=== PATIENT | female | born 1965 | race African-American/Black ===

== ENCOUNTER 2025-05-27 12:36 | Emergency (ER) | payer BC, SELFPAY ==
--- OUTSIDE RECORDS SUMMARY | 2025-05-26 16:30 | XMS_ITS | Encounter Summary ---
Author Organization [facility] Healthcare Address [address] [place] [address] Care Team Providers Care Principal Systems Engineer Name Role Phone Marcus Hernandez MD Primary Care Provider [phone] Reason for Visit * Reason Comments Urinary Symptom Started Saturday wit h symptoms. Burning with urination. Encounter Details Date Type Department Care Team (Late st Contact Info) Description 05/26/2025 4:30 PM CDT Office Visit [facility] at [address] [address] Viv Rao PA [address] [place] [address] [address] [place] [address] Dysuria (Primary Dx) Social History Tobacco Use Types Packs/Day Years Used Date Smoking Tobacco: Never Smokeless Tobacco: Never Alcohol Use Standard Drinks/Week Comments Yes 0 (1 standard drink = 0.6 oz pur e alcohol) AUDIT-C Answer Date Recorded Q1: How often do you have a drink containing alc ohol? Monthly or less 10/15/2024 Q2: How many drinks containi ng alcohol do you have on a typical day when you are drinking? 1 or 2 10/15/2024 Q3: How often do you have si x or more drinks on one occasion? Never 10/15/2024 PHQ-2 Answer Date Recorded PHQ-2 Total Score (If total score is 3 or more points, staff should administer the PHQ-9) 0 03/16/2025 Personal Safety Answer Date Recorded Have you ever been in or are you currently in a harmful physical or emotional relationship or is someone making you feel afraid or unsafe? 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 Gender Identity Not on file Sexual Orientation Not on file documented as of this encounter Last Filed Vital Signs Vital Sign Reading Time Taken Comments Blood Pressure 118/79 05/26/2025 4:35 PM CDT Pulse 90 05/26/2025 4:35 PM CDT Temperature 37.1 C (98.7 F) 05/26/2025 4:35 PM CDT Respiratory Rate 20 05/26/2025 4:35 PM CDT Oxygen Saturation 98% 05/26/2025 4:35 PM CDT Inhaled Oxygen Concentration - - Weight 92.1 kg (203 lb) 05/26/2025 4:35 PM CDT Height - - Body Mass Index 29.98 03/16/2025 1:24 PM CDT documented in this encounter Progress Notes * Viv Rao PA - 05/26/2025 4:30 PM CDT Images from the original note were not included. Subjective/Objective Patient ID: Elaine Ferraro is a 59 y.o. female. This patient has verbally consented to recording this visit in order to utilize AI technology in generating this note. Chief Complaint Urinary Symptom (Started Saturday with symptoms. Burning with urination. ) History of Present Illness Elaine Ferraro is a 59 year old female who presents with low back pain. 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 Physical Exam Physical Exam Constitutional: Appearance: Normal appearance. HENT: Head: Normocephalic and atraumatic. Right Ear: External ear normal. Left Ear: External ear normal. Nose: Nose normal. Mouth/Throat: Pharynx: Oropharynx is clear. Eyes: Pupils: Pupils are equal, round, and reactive to light. Cardiovascular: Rate and Rhythm: Normal rate. Pulmonary: Effort: Pulmonary effort is normal. Musculoskeletal: General: Normal range of motion. Cervical back: Normal range of motion. Skin: General: Skin is warm and dry. Neurological: General: No focal deficit present. Mental Status: She is alert and oriented to person, place, and time. Psychiatric: Mood and Affect: Mood normal. Behavior: Behavior normal. Vitals: 05/26/25 1635 BP: 118/79 Pulse: 90 Resp: 20 Temp: 37.1 ??C (98.7 ??F) TempSrc: Oral SpO2: 98% Weight: 92.1 kg (203 lb) No results found. Past Medical History: Diagnosis Date Arthritis Diverticulosis Dizziness Ear problems Fibroids GERD (gastroesophageal reflux disease) Headache Hypertension Tinnitus Current Outpatient Medications: aspirin 81 mg enteric coated tablet, TAKE 1 TABLET BY MOUTH EVERY DAY, Disp: 90 tablet, Rfl: 1 atorvastatin (LIPITOR) 10 mg tablet, TAKE 1 TABLET BY MOUTH EVERY DAY, Disp: 90 tablet, Rfl: 1 budesonide (PULMICORT) 0.5 mg/2 mL nebulizer solution, Take 2 mL (0.5 mg total) by nebulization daily Rinse mouth with water after use. Do not swallow., Disp: 60 mL, Rfl: 5 HYDROcodone-acetaminophen (NORCO) 10-325 mg per tablet, Take 1 tablet by mouth every 8 (eight) hours as needed for pain, Disp: 90 tablet, Rfl: 0 meclizine (ANTIVERT) 25 mg tablet, Take 1 tablet (25 mg total) by mouth 3 (three) times a day as needed for dizziness, Disp: 40 tablet, Rfl: 1 metoprolol tartrate (LOPRESSOR) 25 mg immediate release tablet, Take 1 tablet (25 mg total) by mouth 2 (two) times a day, Disp: 180 tablet, Rfl: 3 Allergies Allergen Reactions Tetracycline Unknown Lisinopril Unknown and Cough cough Social History Tobacco Use Smoking status: Never Smokeless tobacco: Never Substance and Sexual Activity Drug use: Never Sexual activity: Defer Partners: Male control/protection: Post-menopausal Alcohol Use: Not At Risk (10/15/2024) AUDIT-C Frequency of Alcohol Consumption: Monthly or less Average Number of Drinks: 1 or 2 Frequency of Binge Drinking: Never Past Surgical History: Procedure Laterality Date BREAST BIOPSY Left 01/07/2015 BREAST BIOPSY Left 01/07/2015 SECTION x3 COLONOSCOPY Procedures Assessment/Plan Results Recent Results (from the past 4 hours) POCT urinalysis dipstick Collection Time: 05/26/25 4:42 PM Result Value Ref Range Color, Urine, POC Dark Yellow Clarity, ur, POC Clear Clear Glucose, ur, POC Negative Negative Bilirubin, ur, POC Small (A) Negative Ketones, ur, POC Negative Negative Specific [place], POC 1.030 1.003 - 1.030 Blood, ur, POC Trace (A) Negative pH, ur, POC 6.0 5.0 - 8.0 Protein, ur, POC 100. (A) Negative Urobilinogen, urine, POC 0.2 0.2 - 1.0 mg/dL Nitrite, ur, POC Negative Negative Leukocytes, ur, POC Negative Negative Lot Number [id number] Assessment & Plan Low back pain Lower back pain likely musculoskeletal from repetitive bending working as a home health nurse. Significantly improved at this time, seems to be resolving. UA shows trace blood, possiblity of recentlypassed kidney stone. - send urine culture - Continue ibuprofen. - Apply heat. - Perform light stretching. -follow up with pcp if pain persists -ER for new or worsening symptoms Diagnoses and all orders for this visit: Dysuria (Primary) - Urine culture Urine, clean voided; Future - POCT urinalysis dipstick Disposition Treatment plan including expectations, follow up, and return precautions discussed with patient/parent, verbalizes understanding. Medication dosage, use, and potential adverse reactions discussed with patient/parent. Advised to follow up with PCP if symptoms do not resolve as expected or sooner if condition worsens. Signs/symptoms warranting ER evaluation reviewed. Patient and/or guardian was given an opportunity to ask questions, questions answered. MARCOS Worrell documented in this encounter Plan of Treatment Pending Results Name Type Priority Associated Diagnoses Date /Time Urine culture Urine, clean voided Microbiology Routine Dysuria 05/26/2025 4:45 PM CDT Scheduled Orders Name Type Priority Associated Diagnoses Orde r Schedule Urine culture Urine, clean voided Microbiology Routine Dysuria Expected: 05/26/2025, Expires: 05/26/2026 documented as of this encounter Procedures Procedure Name Priority Date/Time Associated Diagnosis Comments POCT URINALYSIS DIPSTICK Routine 05/26/2025 4:42 PM CDT Dysuria documented in this encounter Results * (ABNORMAL) POCT urinalysis dipstick (05/26/2025 4:42 PM CDT) Color, Urine, POC Dark Yellow Clarity, ur, POC Clear Clear Glucose, ur, POC Negative Negative Bilirubin, ur, POC Small(A) Negative Ketones, ur, POC Negative Negative Specific [place], POC 1.030 1.003 - 1.030 Blood, ur, POC Trace(A) Negative pH, ur, POC 6.0 5.0 - 8.0 Protein, ur, POC 100.(A) Negative Urobilinogen, urine, POC 0.2 0.2 - 1.0 mg/dL Nitrite, ur, POC Negative Negative Leukocytes, ur, POC Negative Negative Lot Number [id number] Urine 05/26/2025 4:42 PM CDT Viv RODRÍGUEZ POINT OF CARE TEST ORDER NORMAN Final Result documented in this encounter Visit Diagnoses Diagnosis Dysuria- Primary documented in this encounter Care Teams Principal Systems Engineer Relationship Specialty Start Date End Date Marcus Hernandez MD PCP - General 10/23/18 documented as of this encounter
--- OUTSIDE RECORDS SUMMARY | 2025-05-26 16:30 | XMS_ITS | Encounter Summary ---
Author Organization [facility] Healthcare Address [address] [place] [address] Care Team Providers Care Prepress Technician Name Role Phone Marcus Hernandez MD Primary Care Provider Reason for Visit * Reason Comments Urinary Symptom Started Saturday wit h symptoms. Burning with urination. 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 (A) Negative Urobilinogen, urine, POC 0.2 0.2 - 1.0 mg/dL Nitrite, ur, POC Negative Negative Leukocytes, ur, POC Negative Negative Lot Number [id number] Assessment & Plan Low back pain Lower [...] Negative Ketones, ur, POC Negative Negative Specific [place], POC 1.030 1.003 - 1.030 Blood, ur, POC Trace(A) Negative pH, ur, POC 6.0 5.0 - 8.0 Protein, ur, POC 100.(A) Negative Urobilinogen, urine, POC 0.2 0.2 - 1.0 mg/dL Nitrite, ur, POC Negative Negative Leukocytes, ur, POC Negative Negative Lot Number [id number] Urine 05/26/2025 4:42 PM CDT Viv RODRÍGUEZ POINT OF CARE TEST ORDER NORMAN Final Result documented in this encounter Visit Diagnoses Diagnosis Dysuria- Primary documented in this encounter Care Teams Prepress Technician Relationship Specialty Start Date End Date Marcus Hernandez MD PCP - General 10/23/18 documented as of this encounter
--- OUTSIDE RECORDS SUMMARY | 2025-05-26 16:45 | XMS_ITS | Encounter Summary ---
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 Do not swallow. 60 mL 5 03/19/2024 HYDROcodone-acet aminophen (NORCO) 10-325 mg per tabletIndication s:Chronic midline thoracic back pain Take 1 tablet by mouth every 8 (eight) hours as needed for pain 90 tablet 05/06/2025 meclizine (ANTIVERT) 25 mg tablet Take 1 tablet (25 mg total) by mouth 3 (three) times a day as needed for dizziness 40 tablet 1 05/06/2025 metoprolol tartrate (LOPRESSOR) 25 mg immediate release tablet Take 1 tablet (25 mg total) by mouth 2 (two) times a day 180 tablet 3 03/16/2025 documented as of this encounter Discharge Disposition Disposition Code Departure Means Destination Discharge to home or self care documented in this encounter Plan of Treatment Pending Results Name Type Priority Associated Diagnoses Date /Time Urine culture Urine, clean voided Microbiology Routine Dysuria 05/26/2025 4:45 PM CDT Scheduled Orders Name Type Priority Associated Diagnoses Orde r Schedule Urine culture Urine, clean voided Microbiology Routine Dysuria Once for 1 Occurrences starting 05/26/2025 until 05/26/2025 documented as of this encounter Visit Diagnoses Diagnosis Dysuria documented in this encounter Care Teams Computer Artist Relationship Specialty Start Date End Date Marcus Hernandez MD PCP - General 10/23/18 documented as of this encounter
--- OUTSIDE RECORDS SUMMARY | 2025-05-26 16:45 | XMS_ITS | Encounter Summary ---
Author Organization 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
--- NOTE | ~2025-05-27 | CT_ITS ---
CTA NECK, CTA HEAD Clinical History: transient altered mental status Comparison: Noncontrast CT head same day TECHNIQUE: Helical images thoracic inlet to vertex IV contrast information not listed in PACS Coronal, sagittal reformats. Multi planar MIPS CT images acquired with automatic exposure control for dose reduction DLP: 969 mGy-cm Findings: NASCET Criteria utilized CTA NECK Aortic arch: No aneurysm or dissection. Great vessel origins: No stenosis. CCAs: No stenosis. Cervical ICAs: No stenosis. Vertebral Arteries: Patent. Lung Apices: Clear. Thyroid: Unremarkable. Nodes: No enlarged nodes. Bones: No acute bony abnormality. CTA HEAD: Aneurysms: None. Intracranial ICAs: Patent, unremarkable. ACAs and their distal branches: Patent, unremarkable. A-Comm: Identified. Patent, unremarkable. MCAs and their distal branches: Patent, unremarkable. Basilar artery: Patent, unremarkable. office coordinator and their distal branches: Patent, unremarkable. P-Comms: Neither present. IMPRESSION: CTA NECK: 1. No acute findings. CTA HEAD: 1. No acute findings. Reviewed, dictated and finalized at location R.
--- NOTE | ~2025-05-27 | CT_ITS ---
CT HEAD NON-CONTRAST Clinical History: altered mental status Comparison: None Technique: Unenhanced axial images skull base to vertex Coronal, sagittal reformats CT images acquired with automatic exposure control for dose reduction DLP: 605 mGy-cm Findings: Mild white matter changes, typically chronic microvascular ischemic disease. Left basal ganglia lacune. Sulci, ventricles: Unremarkable. No intracerebral hemorrhage. No evidence acute territorial infarct. No mass effect, midline shift. Bony calvarium intact. Visualized paranasal sinuses: Clear. Mastoid air cells: Clear. IMPRESSION: 1. No acute intracranial findings. Reviewed, dictated and finalized at location R.
[2025-05-27 12:39] VITALS: BP 156/105; PULSE 102; RESP 16; TEMP 36.5; O2SAT 100
--- NOTE | 2025-05-27 12:48 | ECG_ITS ---
Test Date: 2025-05-27 13:07:07 Measurements Intervals Lynn Rate: 97 P: 39 AK: 188 QRS: -42 QRSD: 102 T: 30 QT: 343 QTc: 438 Interpretive Statements SINUS RHYTHM LEFT AXIS DEVIATION POOR R WAVE PROGRESSION BASELINE ARTIFACT- I, II, III, AVR, AVL, AVF BORDERLINE ECG No previous ECG available for comparison Electronically Signed On 05-27-2025 14:36:37 CDT by Campos Vega D.O.
[2025-05-27 12:58] LABS: Hematocrit 42.8 % (37.0-47.0); Hemoglobin 13.9 g/dL (12.0-15.0); Immature Granulocyte Percent A 0.2 % (0-0.5); Lymphocytes Absolute Auto 2.66 K/mm3 (0.9-3.2); Mean Corpuscular HGB Conc 32.5 g/dl (32-36); Mean Corpuscular Hemoglobin 26.6 pg (26-34); Mean Corpuscular Volume 81.8 fl (80-100); Nucleated Red Blood Cells Absolute Auto 0.000 K/mm3 (0.0-0.012); Nucleated Red Blood Cells Perc 0.0 % (0.0-0.2); Platelet Count Result 257 k/mm3 (150-375); Red Blood Count 5.23 M/mm3 (4.2-5.4); White Blood Count 5.0 K/mm3 (4.5-10.0)
[2025-05-27 13:00] VITALS: BP 176/110; PULSE 95; RESP 15; TEMP 36.7; O2SAT 100
--- NOTE | 2025-05-27 13:07 | ED_ITS ---
HPI - Dizziness General Chief Complaint: Dizziness Stated Complaint: DIZZINESS, LIGHTHEADED Time Seen by Provider: 05/27/25 12:47 History of Present Illness HPI Narrative: Pt presents with onset of lightheadedness, dizziness, a mild LOCKETT and trouble remembering the year. Onset around 1000. Pt says still has a mild general LOCKETT and feels a little fuzzy but can remember everything and has no weakness. Pt reported at triage she had some b/l LE weakness but that has also resolved. Pt says the symptoms lasted about 10 minutes. Pt took two asa before coming to ER. Pt has no history ofsimilar episodes. Related Data Allergies Allergy/AdvReac Type Severity Reaction Status Date / Time No Known Allergies Allergy Verified 05/27/25 12:37 Review of Systems 2 Review of Systems: All systems reviewed & are unremarkable except as noted in HPI and below Exam 2 Const: General: healthy appearing and no acute distress Nutritional Appearance: well nourished Orientation/consciousness: patient oriented x3 Limitations: no limitations HENMT: Head: normal to inspection Face and sinus: normal facial exam M outh: Yes Normal oral and palatal mucosa present Eyes: EOM: EOMs intact bilaterally Neck: Neck: normal visual inspection Chest: Chest palpation & inspection: normal inspection of the chest Resp: Effort & Inspection: normal respiratory effort Auscultation: clear to auscultation bilaterally Cardio: Rate: regular rate Rhythm: regular rhythm GI: Auscultation: normal bowel sounds Skin: General skin exam: normal color Rashes: no rashes Wounds: no wounds Neuro: General: patient oriented x3, moves all extremities, no meningeal signs and CN's II-XI intact bilaterally Cranial nerves: Yes Nystagmus not present Speech: normal speech Extrem: General: normal to inspection and no clubbing, cyanosis or edema Psych: Mental Status: mental status grossly normal Affect: normal affect Attitude: cooperative Course Vital Signs Vital signs: Vital Signs Temperature 97.7 F 05/27/25 12:39 Pulse Rate 102 H 05/27/25 12:39 Respiratory Rate 16 05/27/25 12:39 Blood Pressure 156/105 H 05/27/25 12:39 Pulse Oximetry 100 05/27/25 12:39 Oxygen Delivery Room Air 05/27/25 12:39 Temperature 98.0 F 05/27/25 13:10 Pulse Rate 96 05/27/25 13:10 Respiratory Rate 14 10/16/25 13:10 Blood Pressure 176/110 H 05/27/25 13:10 Pulse Oximetry 99 05/27/25 13:10 Oxygen Delivery Room Air 05/27/25 13:00 MDM - Dizziness MDM Narrative Medical decision making narrative: pt had transient neurologioc symptoms of dizziness and weakness and difficulty remembering date that all resolved after about 10 minutes. Pt has mild LOCKETT now. will do cva work up and reassess. ct and cta neg, labs unremarkable. discussed with patient about possible admission for tia and pt would prefer to go home and see PCP. given neg work up and brief duration of symptoms this seems reasonable Differential Diagnosis Differential diagnosis: Likely benign paroxysmal positional vertigo, orthostatic hypotension, vertebral basilar insufficiency, cerebrovascular accident, acute vestibular neuronitis and transient cerebral ischemia Lab Data Attestation: I reviewed the patient's lab results. 05/27/25 12:51 05/27/25 12:51 Labs: Lab Results 05/27/25 05/27/25 Range/Units 12:46 12:51 WBC 5.0 (4.5-10.0) K/mm3 RBC 5.23 (4.2-5.4) M/mm3 Hgb 13.9 (12.0-15.0) g/dL Hct 42.8 (37.0-47.0) % MCV 81.8 (80-100) fl MCH 26.6 (26-34) pg MCHC 32.5 (32-36) g/dl RDW 12.6 (11.5-14.5) % Plt Count 257 (150-375) k/mm3 MPV 9.2 (7.4-10.4) fl Immature Gran % (Auto) 0.2 (0-0.5) % Neut % (Auto) 37.7 L (45.5-73.1) % Lymph % (Auto) 52.8 H (18.3-44.2) % [place] % (Auto) 7.1 (2.6-8.5) % Eos % (Auto) 2.0 (0-4.4) % Baso % (Auto) 0.2 (0.2-1.2) % Lymph # (Auto) 2.66 (0.9-3.2) K/mm3 [place] # (Auto) 0.4 (0.1-0.6) K/mm3 Eos # (Auto) 0.1 (0-0.3) K/mm3 Baso # (Auto) 0.0 (0.0-0.1) K/mm3 Abs Immat Gran (auto) 0.01 (0.00-0.031) K/mm3 Absolute Neuts (auto) 1.9 (1.3-6.7) K/mm3 Absolute Nucleated RBC 0.000 (0.0-0.012) K/mm3 Nucleated RBC % 0.0 (0.0-0.2) % PT 12.5 (11.1-14.7) Seconds INR 0.9 APTT 27.1 (22.3-36.8) Seconds Sodium 138 (137-145) mmol/L Potassium 3.9 (3.4-5.0) mmol/L Chloride 101 (98-107) mmol/L Carbon Dioxide 29 (22-30) mmol/L Anion Gap 8 (4-12) mmol/L BUN 12 (7-17) mg/dL Creatinine 0.56 L (0.7-1.0) mg/dL Estim Creat Clear Calc 104 ml/min Estimated GFR > 60 (59 - ) Glucose 115 H (65-110) mg/dL POC Capillary Glucose 127 H (65-105) mg/dl Calcium 9.1 (8.4-10.2) mg/dL Total Bilirubin 0.7 (0.2-1.3) mg/dL AST 30 (14-36) U/L ALT 31 (6-35) U/L Alkaline Phosphatase 122 (38-126) U/L Troponin I < 0.012 (0.000-0.034) ng/mL Total Protein 8.0 (6.3-8.2) g/dL Albumin 4.6 (3.5-5.1) g/dL ECG Data EKG #1: Attestation: I personally reviewed and interpreted this ECG as follows: Interpretation: nsr rate 97, lad, no acute st or t wave changes Discharge Plan Discharge Clinical Impression: Dizziness, Transient confusion Patient Disposition: Home Condition: Improved Instructions: Antibiotic Form, Lightheadedness (ED), Altered Mental Status (ED), Dizziness (ED) Patient Language: Telugu Follow-up/Referrals: Mary,Marcus Davis MD [Primary Care Provider, Unknown]
[2025-05-27 13:10] VITALS: BP 176/110; PULSE 96; PULSE 97; RESP 14; TEMP 36.7; O2SAT 99
[2025-05-27 13:10] LABS: Alanine Aminotransferase 31 U/L (6-35); Albumin Level 4.6 g/dL (3.5-5.1); Alkaline Phosphatase 122 U/L (38-126); Anion Gap 8 mmol/L (4-12); Aspartate Amino Transferase 30 U/L (14-36); Bilirubin,Total 0.7 mg/dL (0.2-1.3); Blood Urea Nitrogen 12 mg/dL (7-17); Calcium 9.1 mg/dL (8.4-10.2); Carbon Dioxide 29 mmol/L (22-30); Chloride 101 mmol/L (98-107); Estimated CRCL calculation 104 ml/min; Estimated Glomerular Filt Rate > 60; Glucose 115 mg/dL (65-110); Potassium 3.9 mmol/L (3.4-5.0); Sodium 138 mmol/L (137-145); Total Protein 8.0 g/dL (6.3-8.2)
[2025-05-27 13:20] LABS: INR 0.9; Prothrombin Time 12.5 Seconds (11.1-14.7)
[2025-05-27 13:21] LABS: Partial Thromboplastin Time 27.1 Seconds (22.3-36.8); Troponin I < 0.012 ng/mL (0.000-0.034)
[2025-05-27 13:57] VITALS: BP 154/106; PULSE 96; RESP 15; O2SAT 98
--- OUTSIDE RECORDS SUMMARY | 2025-05-27 14:09 | XMS_ITS | Encounter Summary ---
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 Historical Provider [facility] YAS BROWN Final Result * CARDIOLOGY REPORT (07/09/2017 12:00 AM CIGARETTE PACKER) Anatomical Region Laterality Modality Other Narrative 07/09/2017 12:00 AM CIGARETTE PACKER Ordered by an unspecified provider. us Historical Provider [facility] YAS BROWN Final Result documented in this encounter Visit Diagnoses Not on filedocumented in this encounter Additional Health Concerns Infection Onset Date Last Indicated Resolved Time COVID: Suspected 11/23/2019 11/23/2019 12/07/2019 3:05 AM CDT Exposure, COVID-19 Comment:Added automatically based on COVID19 lab answers indicating exposure risk 02/22/2020 02/22/2020 02/24/2020 10:40 AM CDT COVID19 02/23/2020 02/23/2020 03/08/2020 3:06 AM CDT COVID19 03/07/2020 03/07/2020 03/21/2020 3:06 AM CDT COVID: Recovered Comment:Added based on recent COVID infection. 03/21/2020 04/04/2020 07/19/2020 3:[address] COVID: Suspected 08/18/2021 08/19/2021 08/19/2021 7:46 PM CIGARETTE PACKER COVID19 08/19/2021 08/19/2021 08/29/2021 3:06 AM CIGARETTE PACKER COVID: Recovered Comment:Added based on recent COVID infection. 08/29/2021 08/29/2021 12/27/2021 3:05 AM C DT COVID: Suspected 06/07/2022 06/07/2022 06/07/2022 6:12 PM CDT COVID: Suspected 07/24/2022 07/24/2022 07/24/2022 4:54 PM CIGARETTE PACKER documented as of this encounter Care Teams Bingo Cashier Relationship Specialty Start Date End Date Marcus Hernandez MD PCP - General 10/23/18 documented as of this encounter
--- OUTSIDE RECORDS SUMMARY | 2025-05-27 14:09 | XMS_ITS | Clinical Summary ---
Author Organization [facility] Address [address] [place] [address] Phone Care Team Providers Care Traffic Or System Dispatcher Name Role Phone Marcus Hernandez MD Primary Care Provider [phone] Social History Tobacco Use Types Packs/Day Years Used Date Smoking Tobacco: Never Assessed Comments Unknown Sex and Gender Information Value Date Recorded Sex Assigned at Not on file Legal Sex Female 9:37 AM HAT LACER Gender Identity Not on file Sexual Orientation Not on file Plan of Treatment Health Maintenance Due Date Last Done Comments Hepatitis C Virus (HCV) Screening 1963 Mammogram 1963 Pap Smear 1984 Cervical Cancer Screening (CCS) 1993 HPV/Cotest 1993 Cologuard 2008 Colonoscopy 2008 Colorectal Cancer Screening 2008 Immunochemical Fecal Occult Blood 2008 Pneumococcal Immunization (50+ years) (1 of 1 - PCV) 2013 Zoster Immunization (1 of 2) 2013 Influenza Immunization (#1) 2025 11/0 08/2022, 05/07/2022, 06/13/2021, Additional history exists SARS-COV-2 Immunization (2024- season) 2025 03/01/2022, 06/22/2021, 11/26/2020, Additional history exists Respiratory Syncytial Virus (RSV) Immunization (Adult) (1 - 1-dose 75+ series) 2038 DTaP/Tdap/Td Immunization Discontinued 11/25/2016, TdaP Immunization Completed 11/25/2016 Hepatitis B Immunization Aged Out No longer eligible based on patient's age to complete this topic Human Papillomavirus (HPV) Immunization Aged Out No longer eligible based on patient's age to complete this topic Meningococcal Immunization (ACWY) Aged Out No longer eligible based on patient's age to complete this topic Rotavirus Immunization Aged Out No lo nger eligible based on patient's age to complete this topic Insurance [facility] Care Teams Traffic Or System Dispatcher Relationship Specialty Start Date End Date Marcus Hernandez MD [address] [place] [id number] PCP - General Family Medicine 09/20/23
--- OUTSIDE RECORDS SUMMARY | 2025-05-27 14:09 | XMS_ITS | Clinical Summary ---
Author Organization [facility] Address [address] [place] [address] Care Team Providers Care 911 Emergency Dispatcher Name Role Phone Marcus Hernandez MD Primary Care Provider [phone] Allergies Active Allergy Reactions Criticality Noted Date Comments Lisinopril Unknown,Cough Low 11/25/2016 cough Tetracycline Unknown 01/28/2021 Medications aspirin 81 mg enteric coated tablet TAKE 1 TABLET BY MOUTH EVERY DAY 90 tablet 1 3 Active budesonide (PULMICORT) 0.5 mg/2 mL nebulizer solutionIndica tions:Chronic congestion of paranasal sinus Take 2 mL (0.5 mg total) by nebulization daily Rinse mouth with water after use. Do not swallow. 60 mL 5 4 Active atorvastatin (LIPITOR) 10 mg tablet TAKE 1 TABLET BY MOUTH EVERY DAY 90 tablet 1 5 Active metoprolol tartrate (LOPRESSOR) 25 mg immediate release tablet Take 1 tablet (25 mg total) by mouth 2 (two) times a day 180 tablet 3 5 Active HYDROcodone-ac etaminophen (NORCO) 10-325 mg per tabletIndicati ons:Chronic midline thoracic back pain Take 1 tablet by mouth every 8 (eight) hours as needed for pain 90 tablet 5 Active meclizine (ANTIVERT) 25 mg tablet Take 1 tablet (25 mg total) by mouth 3 (three) times a day as needed for dizziness 40 tablet 1 5 Active meclizine (ANTIVERT) 25 mg tablet Take 1 tablet (25 mg total) by mouth 3 (three) times a day as needed for dizziness 40 tablet 1 5 025 Discontin ued(Reord er) HYDROcodone-ac etaminophen (NORCO) 10-325 mg per tabletIndicati ons:Chronic midline thoracic back pain Take 1 tablet by mouth every 8 (eight) hours as needed for pain 90 tablet 5 025 Discontin ued(Reord er) Active Problems Problem Noted Date Diagnosed Date Thickened 10/15/2024 Sensorineural hearing loss (SNHL) of both ears 0 11/08/2023 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 In the differential diagnosis only concern is a partial complex seizure. I looked at her MRI brain and she does have T2 FLAIR images consistent with previous tiny strokes, not unusual for this age and medical history consistent with hypertension. EEG for Saturday. Recommendations: Dual antiplatelet therapy recommended for 90 days followed by monotherapy, patient was already taking aspirin 81 mg a day at home when this episode occurred. I also asked the patient to hydrate and not perform activity that requires sudden physical exertion. Need lipid panel, LDL goal less than 70 Stroke diet and lifestyle: Consider any meat is better than red meat; fish is better than any meat. Extremely low LDL containing diet for the next 3 months (basically cold-water fish such as salmon/Pima or similar or chicken) High antioxidant containing foods such as blueberries, other berries grown in cold climate and or pistachios. Increase your intake of fruits and vegetables. Walk at least 6440-3589 feet per day. Swimming or non-impact bearing activity is preferred. Ref: Dietary supplementation with blueberries, spinach, or spirulina reduces ischemic brain damage . Exp Neurol . 2005 December;193(1):75-84. doi: 10.1016/j.expneurol.2004.12.014 Associations of Meat and Fish Consumption With Conventional and [employer] Cardiovascular Magnetic Resonance Phenotypes in the [employer]. Front Cardiovasc Med . 2020 5;8:503683. doi: 10.3389/[facility].2021.420288. eCollection 2020. 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 Macromastia 05/05/2020 Fibroids, intramural 10/05/2019 Chronic midline thoracic back pain 09/04/2018 HTN (hypertension) 03/23/2016 Hyperlipidemia 03/23/2016 Assessment & Plan (07/24/2022 5:25 PM INSPECTOR TIMERS): Labs ordered Osteoarthritis 03/23/2016 GERD (gastroesophageal reflux disease) 6 Resolved Problems Problem Noted Date Diagnosed Date Resolved Date Fibroid 07/21/2024 10/08/2024 Dysfunction of both eustachian tubes 11/08/2023 03/16/2025 Chronic pansinusitis 11/08/2023 025 Tinnitus of both ears 11/08/20232024 Overview (11/08/2023): Referral to ENT for further evaluation Acute bronchitis due to COVID-19 virus 03/02/2020 05/05/2020 Acute pain of right shoulder 10/06/2019 05/05/2020 New daily persistent headache 03/10/2019 06/13/2021 Encounters Date Type Department Care Team Description 05/26/2025 4:45 PM CDT - 05/26/2025 11:59 PM CDT Hospital Encounter [address] [address] Dysuria Discharge Disposition: Discharge to home or self care 05/26/2025 4:30 PM CDT Office Visit [facility] at [address] [phone] Viv Rao PA Dysuria (Primary Dx) 04/21/2025 Telephone [facility] Family Medicine at [address] [place] [phone] Marcus Hernandez MD insurance problems 03/16/2025 1:00 PM CDT Telemedicine [facility] Family Medicine at [address] [place] [phone] Marcus Hernandez MD Primary hypertension (Primary Dx); Mixed hyperlipidemia; Gastroesophageal reflux disease without esophagitis; Encounter for screening mammogram for malignant neoplasm of breast 03/11/2025 Telephone [facility] Family Medicine at [address] [place] [address] Theresa Jenkins NP 1st no show letter sent 03/11/25 from Last 3 Months Immunizations Immunization Administration Dates Next Due DTaP 11/25/2016,11/25/2016 Influenza, Quadrivalent, Megan l Culture-based MDCK, Preservative Free, Antibiotic Free, Intramuscular 05/07/2022 Influenza, Quadrivalent, Spl it, Preservative Free, Intramuscular 06/13/2021 Influenza, Unspecified 05/12/2024(Deferr ed: Patient Refused),06/12/2023,08/17/2020, 020(Deferred: Patient decision) Pfizer SARS-CoV-2 Monovalent Vaccination (12+ Yrs) PURPLE 06/22/2021,11/26/2020,11/07/2020 Tdap 11/25/2016 Surgical History Surgery Date Site/Laterality Comments SECTION x3 BREAST BIOPSY 01/07/2015 Left BREAST BIOPSY 01/07/2015 Left COLONOSCOPY Medical History Medical History Date Comments Hypertension Fibroids Arthritis Dizziness Ear problems Tinnitus Headache GERD (gastroesophageal reflux disease) Diverticulosis Family History Medical History Relation Name Comments Skin cancer Brother 1 No Known Problems Brother 2 No Known Problems Brother 3 Breast cancer Mother No Known Problems Sister 1 No Known Problems Sister 2 Ovarian cancer Neg Hx Uterine cancer Neg Hx Relation Name Status Comments Brother 1 Brother 2 Alive Brother 3 Alive Father Mother at age 68 Sister 1 Alive Sister 2 Alive Social History Tobacco Use Types Packs/Day Years Used Date Smoking Tobacco: Never Smokeless Tobacco: Never Tobacco Cessation:Counseling Given: Not Answered Alcohol Use Standard Drinks/Week Comments Yes 0 [...] on file Legal Sex Female 8:23 PM INSPECTOR TIMERS Gender Identity Not on file Sexual Orientation Not on file Obstetrics History Para Term AB IAB SAB Ectopic Multiple Livin g Live Births 5 3 3 2 2 3 Date Outcome GA Total Labor Labor/2nd/3rd Weight Sex Type Anes PTL Chelsy A1 A5 Name Clin Term Term Term SAB SAB Last Filed Vital Signs Vital Sign Reading Time Taken Comments Blood Pressure 118/79 05/26/2025 4:35 PM CDT Pulse 90 05/26/2025 4:35 PM CDT Temperature 37.1 C (98.7 F) 05/26/2025 4:35 PM CDT Respiratory Rate 20 05/26/2025 4:35 PM CDT Oxygen Saturation 98% 05/26/2025 4:35 PM CDT Inhaled Oxygen Concentration - - Weight 92.1 kg (203 lb) 05/26/2025 4:35 PM CDT Height 175.3 cm (5' 9) 03/16/2025 1:24 PM CDT Body Mass Index 29.98 03/16/2025 1:24 PM CDT Plan of Treatment Health Maintenance Due Date Last Done Comments Zoster Vaccine (1 of 2) 2013 Cervical Cancer Screening 09/07/2015 09/07/2014 Breast Cancer Screening-Mammogram 10/07/2024 10/07/2023, 09/14/2022, 09/11/2021, Additional history exists Regular Well Visit/Exam 18-64 03/19/2025 03/19/2024, 05/29/2023, 01/10/2023, Additional history exists Covid-19 Vaccine ( season) 2025 03/01/2022, 06/22/2021, 11/26/2020, Additional history exists Influenza Vaccine (#1) 2025 3, 05/07/2022, 06/13/2021, Additional history exists Depression Screening 03/16/2026 03/16/2025, 10/08/2024, 03/19/2024, Additional history exists DTaP/Tdap/Td Vaccine (4 - Td or Tdap) 11/25/2026 11/25/2016, 11/25/2016, 11/25/2016 Colon Cancer Screening-Colonoscopy 10/05/2029 10/05/2024, 10/05/2024, 04/06/2019, Additional history exists Hepatitis B Screening Completed 02/19/2022 Hepatitis C Screening Completed 02/19/2022 , 03/21/2019, 10/26/2017, Additional history exists Colon Cancer Screening-CT Colonography Discontinued 10/05/2024, 10/05/2024, 04/06/2019, Additional history exists Colon Cancer Screening-DNA Stool Discontinued 10/05/2024, 10/05/2024, 04/06/2019, Additional history exists Colon Cancer Screening-FIT Discontinued 10/05, 10/05/2024, 04/06/2019, Additional history exists Colon Cancer Screening-Sigmoidoscopy Discontinued 10/05/2024, 10/05/2024, 04/06/2019, Additional history exists Pneumococcal vaccine <65 Aged Out No longer eligible based on patient's age to complete this topic Procedures Procedure Name Priority Date/Time Associated Diagnosis Comments POCT URINALYSIS DIPSTICK Routine 05/26/2025 4:42 PM CDT Dysuria COLONOSCOPY Routine 10/05/2024 2:02 PM INSPECTOR TIMERS DIAGNOSTIC MAMMOGRAM BILATERAL W DIANNA Schedule Routine, Read Routine (OP Routine) 10/07/2023 8:30 AM INSPECTOR TIMERS Breast pain, left HEPATITIS PANEL, ACUTE Routine 02/19/2022 11:12 AM CDT Encounter for annual routine gynecological examination THINPREP PAP Routine 09/07/2014 3:45 PM INSPECTOR TIMERS from Last 3 Months or Most Recently Relevant to Health Maintenance Results * (ABNORMAL) POCT urinalysis dipstick (05/26/2025 4:42 PM CDT) Color, Urine, POC Dark Yellow Clarity, ur, POC Clear Clear Glucose, ur, POC Negative Negative Bilirubin, ur, POC Small(A) Negative Ketones, ur, POC Negative Negative Specific Graff, POC 1.030 1.003 - 1.030 Blood, ur, POC Trace(A) Negative pH, ur, POC 6.0 5.0 - 8.0 Protein, ur, POC 100.(A) Negative Urobilinogen, urine, POC 0.2 0.2 - 1.0 mg/dL Nitrite, ur, POC Negative Negative Leukocytes, ur, POC Negative Negative Lot Number [id number] Urine 05/26/2025 4:42 PM CDT Viv RODRÍGUEZ POINT OF CARE TEST ORDER NORMAN Final Result * Colonoscopy (10/05/2024 10:17 AM INSPECTOR TIMERS) Anatomical Region Laterality Modality Other Historical Provider ENDOSCOPY PROCEDURES Della l Result * DIAGNOSTIC MAMMOGRAM BILATERAL W DIANNA (10/07/2023 8:30 AM INSPECTOR TIMERS) Anatomical Region Laterality Modality Breast Bilateral Mammography 10/07/2023 9:23 AM INSPECTOR TIMERS Impressions 10/07/2023 9:23 AM INSPECTOR TIMERS No mammographic or sonographic evidence of malignancy. No abnormality visualized within the upper inner quadrant of the left breast at the site of the patient's pain. Recommend continued clinical correlation/management for her symptoms as well as annual screening mammography. RECOMMENDATIONS: Clinical correlation/management and annual screening mammography. Electronically signed by: Elyssa Padilla M.D. Narrative 10/07/2023 9:23 AM INSPECTOR TIMERS DIAGNOSTIC MAMMOGRAM BILATERAL W DIANNA, US BREAST LEFT LIMITED INDICATION FOR EXAMINATION: Sharp stabbing pain within the upper inner quadrant of the left breast for a couple of months. Bilateral annual mammogram. COMPARISONS: 09/14/2022, 09/11/2021, 03/06/2021, 08/30/2020, 05/29/2019, 05/10/2018 TECHNIQUE: 3D MLO and CC digital tomosynthesis images were acquired and synthesized 2D images (C view) were generated. This digital mammogram was also analyzed by the Computer Aided Detection System CAD). FINDINGS: BREAST COMPOSITION: There are scattered areas of fibroglandular density. The overall fibroglandular pattern is stable bilaterally. Multiple bilateral circumscribed waxing and waning masses are noted, without significant change from prior mammograms. There are no suspicious masses, architectural distortion or microcalcifications visualized. Further evaluation of the left breast at the site of the patient's pain with ultrasound to follow. TECHNIQUE: Multiple transverse and longitudinal real time sonographic images were obtained of the left breast in the area of concern. Doppler evaluation was also performed. FINDINGS: Normal tissue is visualized within the upper inner quadrant of the left breast at the site of the patient's pain. Incidentally noted is an oval hypoechoic mass with circumscribed margins within the 1:00 axis of the left breast, 6 cm from the nipple measuring 0.8 x 0.6 x 0.5 cm. This contains a calcification is stable mammographically for many years. ASSESSMENT: Benign. No evidence of malignancy. BI-RADS 2. us Marcus Hernandez MD IMG MAMMO PROCEDURES Final Re sult * Hepatitis panel, acute (02/19/2022 11:12 AM CDT) Hep A IgM Nonreactive Nonreactive SAPPHIRE Comment: Interpretive Data: If Hep A IgM Ab is reported as Equivocal, a new sample should be drawn in two weeks for testing. Current interpretive data was last revised on 19. Hep B core IgM Nonreactive Nonreactive SAPPHIRE Comment: Interpretive Data If HepB Core IgM Ab is reported as Equivocal, a new sample should be drawn in two weeks for testing. Current interpretive data was last revised on 19. Hep C Ab Nonreactive Nonreactive SAPPHIRE Comment: Interpretive Data Nonreactive: Antibodies to HCV not detected. Does NOT exclude the possibility of recent exposure to HCV. Equivocal: Equivocal for HCV antibodies. Supplemental molecular testing will be automatically performed to determine infection status in accordance with current CDC screening recommendations. Reactive: Positive for HCV antibodies. This may represent current or past HCV infection. Supplemental molecular testing will be automatically performed to determine current infection status in accordance with current CDC screening recommendations. Interpretive data was last revised on 2019. HepBsAg Nonreactive Nonreactive SAPPHIRE TINEO Blood 02/19/2022 11:1 2 AM CDT 02/19/2022 3:15 PM CDT us Harmony Dixon NP LAB MICROBIOLOGY - GENERAL ORDER NORMAN Final Result [facility] [id number] [facility] Department [place] [address] * ThinPrep Pap (09/07/2014 3:45 PM INSPECTOR TIMERS) Pathologist [facility] Thin Prep Pap Smear SEE BELOW () 09/17 8:51 AM INSPECTOR TIMERS [facility] HISTORICAL RESULTS Comment: Photography Teacher ThinPrep Cytology Final Report ThinPrep Pap Specimen Source Cervix/Endocervix Specimen Adequacy Satisfactory for interpretation, endocervical cells (transformation zone) present. Interpretation Negative for intraepithelial lesion or malignancy. 09/17/14 Database Dba: CHEYANNE Keita(ASCP) 09/17/14 Verified By: CHEYANNE Keita(ASCP) electronic signature [facility], Department of Pathology For questions regarding this case, call ext. [phone] CPT Code(s) 30264 Clinical History Clinical Information: LMP: N : N : N IUD: N Hormone Therapy: N Postmenopausal: Y Previous surgery date and type: N Hysterectomy: N Chemotherapy: N MARYLIN Exposure: N Radiation: N Previous Abnormal Pap? Details: N Diagnostic or Screening Pap Test: Screening Performed by [facility], [address] [place] [id number] [email or web address], Kris Abbasi MD - Lab. Director 09/07/2014 3:45 PM INSPECTOR TIMERS 09/08/2014 12:09 PM INSPECTOR TIMERS Abelardo Vizcarra MD LAB PATHOLOGY ORDERABLES F inal Result [facility] HISTORICAL RESULTS from Last 3 Months or Most Recently Relevant to Health Maintenance Insurance [employer] ACCESS CHOICE [employer] ACCESS Advance Directives For more information, please contact: [phone] * Full Code (Latest Code Status on File) Date Activated Date Inactivated Comments 01/28/2021 1:57 PM 01/31/2021 5:57 PM Care Teams 911 Emergency Dispatcher Relationship Specialty Start Date End Date Marcus Hernandez MD PCP - General 10/23/18
--- OUTSIDE RECORDS SUMMARY | 2025-05-27 15:42 | XMS_ITS | Encounter Summary ---
Author Organization 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 Gender Identity Not on file Sexual Orientation Not on file documented as of this encounter Plan of Treatment Not on file documented as of this encounter Procedures Procedure Name Priority Date/Time Associated Diagnosis Comments CARDIOLOGY REPORT 07/09/2017 12: 00 AM CIGAR WRAPPER TENDER AUTOMATIC CARDIOLOGY REPORT 07/09/2017 12: 00 AM CIGAR WRAPPER TENDER AUTOMATIC documented in this encounter Results * CARDIOLOGY REPORT (07/09/2017 12:00 AM CIGAR WRAPPER TENDER AUTOMATIC) Anatomical Region Laterality Modality Other Narrative 07/09/2017 12:00 AM CIGAR WRAPPER TENDER AUTOMATIC Ordered by an unspecified provider. Historical Provider [facility] YAS BROWN Final Result * CARDIOLOGY REPORT (07/09/2017 12:00 AM CIGAR WRAPPER TENDER AUTOMATIC) Anatomical Region Laterality Modality Other Narrative 07/09/2017 12:00 AM CIGAR WRAPPER TENDER AUTOMATIC Ordered by an unspecified provider. us Historical [...] COVID: Suspected 08/18/2021 08/19/2021 08/19/2021 7:46 PM CIGAR WRAPPER TENDER AUTOMATIC COVID19 08/19/2021 08/19/2021 08/29/2021 3:06 AM CIGAR WRAPPER TENDER AUTOMATIC COVID: Recovered Comment:Added based on recent COVID infection. 08/29/2021 08/29/2021 12/27/2021 3:05 AM C DT COVID: Suspected 06/07/2022 06/07/2022 06/07/2022 6:12 PM CDT COVID: Suspected 07/24/2022 07/24/2022 07/24/2022 4:54 PM CIGAR WRAPPER TENDER AUTOMATIC documented as of this encounter Care Teams Assembler Golf Wood Head Relationship Specialty Start Date End Date Marcus Hernandez MD PCP - General 10/23/18 documented as of this encounter
--- OUTSIDE RECORDS SUMMARY | 2025-05-27 15:42 | XMS_ITS | Encounter Summary ---
Author Organization [facility] Healthcare Address [address] [place] [address] Care Team Providers Care Sales Review Clerk Name Role Phone Marcus Hernandez MD Primary Care Provider [phone] Reason for Visit * Reason Onset Date Comments Appointment Request 05/27/2025 Encounter Details Date Type Department Care Team (Late st Contact Info) Description 05/27/2025 Telephone [facility] Family Medicine at [address] [place] [address] Marcus Hernandez MD [address] [place] [address] Appointment Request Social History Tobacco Use Types Packs/Day Years [...] on file 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 Visit Type: Established Patient What is the reason for the visit? Seen in the ED at [place]. Her blood pressure was 176/106. She was dizzy, light-headed. had trouble remembering the years. They ran testing at the ED for strokes. What is the reason we were unable to schedule the appointment? Current appointment availability didnot meet patient's need. If applicable, were all members of the patient's PCP care team offered (e.g., nurse practioner(s), physician assistant restaurant general manager(s)) ? Yes Additional Comments: Needs seen sooner than later. Does message need to be routed? Yes-Action Needed documented in this encounter Plan of Treatment Not on file documented as of this encounter Visit Diagnoses Not on filedocumented in this encounter Care Teams Sales Review Clerk Relationship Specialty Start Date End Date Marcus Hernandez MD PCP - General 10/23/18 documented as of this encounter
--- OUTSIDE RECORDS SUMMARY | 2025-05-27 15:42 | XMS_ITS | Clinical Summary ---
Author Organization [facility] Address [address] [place] [address] Phone Care Team Providers Care Hardware Designer Name Role Phone Marcus Hernandez MD Primary Care Provider [phone] Social History Tobacco Use Types Packs/Day Years Used Date Smoking Tobacco: Never Assessed Comments Unknown Sex and Gender Information Value Date Recorded Sex Assigned at Not on file Legal Sex Female 9:37 AM PREPARED FOODS ASSOCIATE Gender Identity Not on file Sexual Orientation [...] patient's age to complete this topic Insurance [place] [address] Care Teams Hardware Designer Relationship Specialty Start Date End Date Marcus Hernandez MD [address] [place] [id number] PCP - General Family Medicine 09/20/23
--- OUTSIDE RECORDS SUMMARY | 2025-05-27 15:42 | XMS_ITS | Clinical Summary ---
Author Organization [facility] at the Medical Office Building Address [address] [place] [id number] Care Team Providers Care Residential Monitor Name Role Phone Marcus Hernandez MD Primary Care Provider [phone] Allergies Active Allergy Reactions Criticality Noted Date [...] 3 months (basically cold-water fish such as salmon/Krypton or similar or chicken) High antioxidant containing foods such as blueberries, other berries grown in cold climate and or pistachios. Increase your intake of fruits and vegetables. Walk at least 8912-3927 feet per day. Swimming or non-impact bearing activity is preferred. Ref: Dietary supplementation with blueberries, spinach, or spirulina reduces ischemic brain damage . Exp Neurol . 2005 December;193(1):75-84. doi: 10.1016/j.expneurol.2004.12.014 Associations of Meat and Fish Consumption With Conventional and [employer] Cardiovascular Magnetic Resonance Phenotypes in the [employer]. Front Cardiovasc Med . 2020 5;8:888797. doi: 10.3389/[facility].2021.069465. eCollection 2020. 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 Macromastia 05/05/2020 Fibroids, intramural 10/05/2019 Chronic midline thoracic back pain 09/04/2018 HTN (hypertension) 03/23/2016 Hyperlipidemia 03/23/2016 Assessment & Plan (07/24/2022 5:25 PM SUPPLY CHAIN LOGISTICS MANAGER): Labs ordered Osteoarthritis 03/23/2016 GERD (gastroesophageal reflux [...] Encounters Date Type Department Care Team Description 05/27/2025 Telephone [facility] Family Medicine at [address] [phone] Marcus Hernandez MD Appointment Request 05/26/2025 4:45 PM CDT - 05/26/2025 11:59 PM CDT Hospital Encounter [address] [address] Dysuria Discharge Disposition: Discharge to home or self care 05/26/2025 4:30 PM CDT Office Visit [facility] Care at [address] [phone] Viv Rao PA Dysuria (Primary Dx) 04/21/2025 Telephone [facility] Family Medicine at [address] [place] [phone] Marcus Hernandez MD insurance problems 03/16/2025 1:00 PM CDT Telemedicine [facility] at [address] [place] [address] Marcus Hernandez MD Primary hypertension (Primary Dx); Mixed hyperlipidemia; Gastroesophageal reflux disease without esophagitis; Encounter for screening mammogram for malignant neoplasm of breast 03/11/2025 Telephone [facility] at [address] [place] [address] Theresa Jenkins NP 1st no [...] on file Legal Sex Female 8:23 PM SUPPLY CHAIN LOGISTICS MANAGER Gender Identity Not on file Sexual Orientation [...] Additional history exists Influenza Vaccine (#1) 2025 , 05/07/2022, 06/13/2021, Additional history exists Depression Screening [...] CDT Dysuria COLONOSCOPY Routine 10/05/2024 2:02 PM SUPPLY CHAIN LOGISTICS MANAGER DIAGNOSTIC MAMMOGRAM BILATERAL W DIANNA Schedule Routine, Read Routine (OP Routine) 10/07/2023 8:30 AM SUPPLY CHAIN LOGISTICS MANAGER Breast pain, left HEPATITIS PANEL, ACUTE Routine 02/19/2022 11:12 AM CDT Encounter for annual routine gynecological examination THINPREP PAP Routine 09/07/2014 3:45 PM SUPPLY CHAIN LOGISTICS MANAGER from Last 3 Months or Most Recently Relevant to Health Maintenance Results * (ABNORMAL) POCT urinalysis dipstick (05/26/2025 4:42 PM CDT) Color, Urine, POC Dark Yellow Clarity, ur, POC Clear Clear Glucose, ur, POC Negative Negative Bilirubin, ur, POC Small(A) Negative Ketones, ur, POC Negative Negative Specific Alger, POC 1.030 1.003 - 1.030 Blood, ur, POC Trace(A) Negative pH, ur, POC 6.0 5.0 - 8.0 Protein, ur, POC 100.(A) Negative Urobilinogen, urine, POC 0.2 0.2 - 1.0 mg/dL Nitrite, ur, POC Negative Negative Leukocytes, ur, POC Negative Negative Lot Number [id number] Urine 05/26/2025 4:42 PM CDT Viv RODRÍGUEZ POINT OF CARE TEST ORDER NORMAN Final Result * Colonoscopy (10/05/2024 10:17 AM SUPPLY CHAIN LOGISTICS MANAGER) Anatomical Region Laterality Modality Other Historical Provider ENDOSCOPY PROCEDURES Della l Result * DIAGNOSTIC MAMMOGRAM BILATERAL W DIANNA (10/07/2023 8:30 AM SUPPLY CHAIN LOGISTICS MANAGER) Anatomical Region Laterality Modality Breast Bilateral Mammography 10/07/2023 9:23 AM SUPPLY CHAIN LOGISTICS MANAGER Impressions 10/07/2023 9:23 AM SUPPLY CHAIN LOGISTICS MANAGER No mammographic or sonographic evidence of malignancy. No abnormality visualized within the upper inner quadrant of the left breast at the site of the patient's pain. Recommend continued clinical correlation/management for her symptoms as well as annual screening mammography. RECOMMENDATIONS: Clinical correlation/management and annual screening mammography. Electronically signed by: Elyssa Padilla M.D. Narrative 10/07/2023 9:23 AM SUPPLY CHAIN LOGISTICS MANAGER DIAGNOSTIC MAMMOGRAM BILATERAL W DIANNA, US BREAST [...] Benign. No evidence of malignancy. BI-RADS 2. Marcus Hernandez MD IMG MAMMO PROCEDURES Final [...] 2 AM CDT 02/19/2022 3:15 PM CDT Harmony Dixon NP LAB MICROBIOLOGY - GENERAL ORDER NORMAN Final Result [facility] [address] [facility] Department [place] [address] * ThinPrep Pap (09/07/2014 3:45 PM SUPPLY CHAIN LOGISTICS MANAGER) Thin Prep Pap Smear SEE BELOW () 09/17 8:51 AM SUPPLY CHAIN LOGISTICS MANAGER [facility] HISTORICAL RESULTS Comment: Mid Level Game Designer ThinPrep Cytology Final Report ThinPrep Pap Specimen Source Cervix/Endocervix Specimen Adequacy Satisfactory for interpretation, endocervical cells (transformation zone) present. Interpretation Negative for intraepithelial lesion or malignancy. 09/17/14 Show Horse Driver: CHEYANNE Keita(ASCP) 09/17/14 Verified By: CHEYANNE Keita(ASCP) electronic signature [facility], Department of Pathology For questions regarding this case, call ext. [phone] CPT Code(s) 76427 Clinical History Clinical Information: LMP: N : N : N IUD: N Hormone Therapy: N Postmenopausal: Y Previous surgery date and type: N Hysterectomy: N Chemotherapy: N MARYLIN Exposure: N Radiation: N Previous Abnormal Pap? Details: N Diagnostic or Screening Pap Test: Screening Performed by [email or web address], [facility] [place] [address] [email or web address], Kris Abbasi MD - Lab. Director 09/07/2014 3:45 PM SUPPLY CHAIN LOGISTICS MANAGER 09/08/2014 12:09 PM SUPPLY CHAIN LOGISTICS MANAGER us Abelardo Vizcarra MD LAB PATHOLOGY ORDERABLES F inal Result [facility] HISTORICAL RESULTS from Last 3 Months or Most Recently Relevant to Health Maintenance Insurance [employer] CHO[employer] Directives For more information, please contact: [phone] * Full Code (Latest Code Status on File) Date Activated Date Inactivated Comments 01/28/2021 1:57 PM 01/31/2021 5:57 PM Care Teams Residential Monitor Relationship Specialty Start Date End Date Marcus Hernandez MD PCP - General 10/23/18
== END 2025-05-27 13:59 | disposition home or self-care (01) ==
LOC: ANHED 13:44
PROVIDERS: Emergency Provider Emergency Medicine; PCP Family Medicine
DX: R42 Dizziness and giddiness (principal); R41.0 Disorientation, unspecified; R94.31 Abnormal electrocardiogram [ECG] [EKG]
CPT/HCPCS: 36415; 70450; 70496; 70498; 80053; 82948; 84484; 85025; 85610; 85730; 93005; 99284; Q9967